=== PATIENT | female | born 1975 | race Caucasian/White ===

== ENCOUNTER → 2017-11-29 | Outpatient (CLI) | payer OTHER ==
[~2017-11-29] MED LIST: ACE3 PO; IBU200 PO; IBU800 PO; KET10 PO; MULT-1319 PO; PER PO
--- NOTE | 2017-12-06 14:39 | RADIOLOGY IMAGING REPORT ---
FACILITY: [facility] PATIENT NAME: HERI ELMORE : [id number] MR: [id number] V: [id number] EXAM DATE: ORDERING PHYSICIAN: REGINA TIDWELL TECHNOLOGIST: Becca Abraham PROCEDURE:BILATERAL DIGITAL SCREENING MAMMOGRAM WITH CAD ASSISTED INTERPRETATION & 3D BREAST TOMOSYNTHYSIS COMPARISON:Baseline Mammogram INDICATIONS:screening FINDINGS: Dense heterogeneous fibroglandular tissue is seen throughout the breasts. There is no evidence of malignant appearing mass, malignant appearing calcification or secondary sign of malignancy in either breast. DIAGNOSTIC CATEGORY 1--NEGATIVE. RECOMMENDATIONS: ROUTINE MAMMOGRAM AND CLINICAL EVALUATION. IMPRESSION: BIRADS 1: Negative 1. No significant abnormality is seen Dictated by: Suma Venegas M.D. on 11/29/2017 at 15:55 Transcribed by: MATILDE on 12/06/2017 at 14:16 Approved by: Suma Venegas M.D. on 12/06/2017 at 14:37 [facility]
== END ==
LOC: MAMO 01:37
PROVIDERS: ATTEND Obstetrics & Gynecology
DX: Z12.31 Encounter for screening mammogram for malignant neoplasm of breast (principal)
CPT/HCPCS: 77063; 77067